=== PATIENT | female | born 1940 | race Caucasian/White ===

== ENCOUNTER → 2017-04-02 | Outpatient (CLI) | payer MEDICAID ==
[~2017-04-02] MED LIST: ALEN70TA30 PO; ALPR0.254 PO; CALC1TAB79 PO; GABA300C16 PO; NIFE30TA60 PO; OMEP20CA16 PO
--- NOTE | 2017-04-03 18:30 | RADRPT ---
Echocardiogram Report Patient Name: KIMMY BARILLAS Gender: Female Date: 1940 Study Date: 02-Apr-2017 Keyboard Instrument Tuner: Pauline Camara RDCS Location: EKG Ref. Physician: JOE PEREIRA Quality: Good Procedures: Transthoracic echocardiogram with complete 2D, M-Mode, and doppler examination. Indications: Breast Cancer. 2D/M Mode Doppler Measurement Value Normal Ranges Measurement Value Normal Ranges LVIDd 2D 4.1 3.5 - 5.6 cm AV Peak [place] 1.4 m/sec LVIDs 2D 2.1 2.1 - 4.1 cm AV Peak PG 8.4 mmHg LVPWd 2D 0.8 0.6 - 1.1 cm LVOT Peak [place] 1.0 m/sec IVSd 2D 0.9 0.6 - 1.1 cm LVOT Peak PG 3.7 mmHg AoR Diam 2D 2.6 2.0 - 3.7 cm MV E Peak [place] 0.8 m/sec EDV 2D 75.5 cm3 MV A Peak [place] 0.7 m/sec ESV 2D 8.7 cm3 MV E/A 1.0 LA Dimen 2D 3.3 2.3 - 4.0 cm MV Decel Time 164 msec MV Decel Riley 5 MV E/A 1.0 TR Peak [place] 3.0 m/sec TR Peak PG 36.6 mmHg RVSP 40.0 mmHg Findings Left Ventricle: Normal left ventricular systolic function. Normal left ventricular cavity size. Normal left ventricular wall thickness. Ejection fraction is visually estimated at 5560 %. Tissue Doppler/Mitral Doppler indices are consistent with impaired relaxation (Stage I diastolic dysfunction). Right Ventricle: Normal right ventricular size. Normal right ventricular systolic function. Left Atrium: The left atrium is normal in size. Right Atrium: The right atrium is normal in size. Mitral Valve: Mitral valve leaflets appear mildly thickened. Mild mitral annular calcification. Trace mitral regurgitation. Aortic Valve: Normal appearance of the aortic valve. No significant aortic stenosis or insufficiency. Tricuspid Valve: Normal appearance of the tricuspid valve. Estimated peak PA systolic pressure 40 mmHg. There is mild tricuspid regurgitation. Pulmonic Valve: Normal pulmonic valve appearance. Pericardium: Normal pericardium with no significant pericardial effusion. Aorta: Normal aortic root. IVC: Normal size and normal respiratory collapse consistent with normal right atrial pressure. Conclusions 1.Normal left ventricular systolic function. Normal left ventricular cavity size. Normal left ventricular wall thickness. Ejection fraction is visually estimated at 55-60 %. Tissue Doppler/Mitral Doppler indices are consistent with impaired relaxation (Stage I diastolic dysfunction). 2.Mitral valve leaflets appear mildly thickened. Mild mitral annular calcification. Trace mitral regurgitation. 3.Normal appearance of the tricuspid valve. Estimated peak PA systolic pressure 40 mmHg. There is mild tricuspid regurgitation. Electronically Signed By: Rolly Rice 03-Apr-2017 18:29:30 -0800 Patient Name: KIMYM BARILLAS Study Date: 02-Apr-2017 [id number]
== END | disposition home or self-care (01) ==
LOC: EKG 08:39
PROVIDERS: ATTEND Internal Medicine Hematology & Oncology
DX: C50.919 Malignant neoplasm of unspecified site of unspecified female breast (principal)
CPT/HCPCS: 93306

== ENCOUNTER 2017-08-01 10:31 | Inpatient (IN) | END 2017-08-03 14:55 | disposition home or self-care (01) | DRG 583 ==

== ENCOUNTER 2017-08-04 09:52 | Emergency (ER) | END 2017-08-04 12:28 | disposition home or self-care (01) ==

== ENCOUNTER → 2017-12-22 15:05 | Inpatient (IN) | END | disposition home or self-care (01) | DRG 871 ==

== ENCOUNTER 2018-03-21 08:15 | Day surgery (SDC) | END 2018-03-21 15:28 | disposition home or self-care (01) ==

== ENCOUNTER 2018-08-14 12:41 | Emergency (ER) | payer OTHER ==
[~2018-08-14] VITALS: Ht 152.4 cm; Wt 59.3 kg
[~2018-08-14 12:41] MED LIST changes: -ALEN70TA30 PO; -ALPR0.254 PO; +CYCL1DRO BOTH EYES; +FAMO40TA5 PO; -NIFE30TA60 PO; +NIMO30CA5 PO; -OMEP20CA16 PO; +PANT40TA3 PO; +TRAZ-111 PO; +[UNRECOGNIZED DRUG - CODE] PO
[2018-08-14 13:06] VITALS: Ht 152.4 cm; Wt 59.3 kg
[2018-08-14] MEDS ORDERED: morphine 4 MG/ML VIAL IV STA (14:50)
[2018-08-14] MEDS ORDERED: ONDANSETRON 4 MG INJ IV STA (14:50)
[2018-08-14] MEDS ORDERED: CALC-267 PO (15:57)
[2018-08-14] MEDS ORDERED: LETR2.5T PO (15:58)
[2018-08-14] MEDS ORDERED: GABA300C16 PO (15:58)
[2018-08-14] MEDS ORDERED: TRAZ-149 PO (15:58)
[2018-08-14] MEDS ORDERED: FAMO40TA5 PO (15:59)
[2018-08-14] MEDS ORDERED: PANT40TA4 PO (15:59)
[2018-08-14] MEDS ORDERED: NITROFURANTOIN (SR) 100 MG CAP PO ONE (16:00)
[2018-08-14] MEDS ORDERED: NITR-58 PO (17:28)
--- NOTE | 2018-08-14 17:30 | ERD ---
ER Documentation Chief Complaint Chief Complaint pain on left side of abd. that radiates to back for 2 wks(hx of gallstones) HPI Patient is a 78-year-old female with breast cancer who presents with left-sided abdominal pain. Symptoms started on Saturday. She said that they have been strong and constant. Upon review of old medical records the patient has multiple visits to the ER for various complaints. She says that her primary doctor is Dr. Angeles. ROS All systems reviewed and are negative except as per history of present illness. Medications Home Meds Active Scripts Nitrofurantoin Monohyd Macrocr* (Macrobid*) 100 Mg Capsr, 100 MG PO BID for 7 Days, CAP Prov:PHILLIP RAMIREZ MD 08/14/18 Reported Medications Pantoprazole* (Pantoprazole*) 40 Mg Tablet.dr, 40 MG PO AC BREAKFAST, TAB 08/14/18 Famotidine* (Famotidine*) 40 Mg Tablet, 40 MG PO HS, #30 TAB 08/14/18 Trazodone Hcl* (Desyrel*) 50 Mg Tab, 50 MG PO QHS, #30 TAB 08/14/18 Letrozole* (Letrozole*) 2.5 Mg Tablet, 2.5 MG PO DAILY, TAB 08/14/18 Gabapentin* (Gabapentin*) 300 Mg Capsule, 300 MG PO TID, #90 CAP 08/14/18 Calc/D3/Mag/Zn/Cathode Washer/Ananda/[place] (Calcium 600 + Vit D) 1 Each Tablet, 1 TAB PO DA SEVERIANO, TAB 08/14/18 Discontinued Reported Medications Acetaminophen (MAPAP) 32 Mg/1 Ml Disp.syrin, 32 MG PO 03/21/18 Nimodipine (NIMODIPINE) 30 Mg Capsule, 30 MG PO DAILY, CAP 03/21/18 Trazodone Hcl* (Trazodone Hcl*) 50 Mg Tablet, 50 MG PO QHS, #30 TAB 03/21/18 Famotidine* (Famotidine*) 40 Mg Tablet, 40 MG PO HS, #30 TAB 03/21/18 Cyclosporine (RESTASIS) 1 Each [place], 1 DROP BOTH EYES Q12, #1 BOX 12/05/17 Gabapentin* (Gabapentin*) 300 Mg Capsule, 300 MG PO TID, #90 CAP 02/13/17 Calcium Carbonate/Vitamin D3 ([place] 500+D Tablet) 1 Each Tablet, 1 EACH PO DAILY, TAB 02/13/17 Discontinued Scripts Pantoprazole* (Protonix*) 40 Mg Tablet.dr, 40 MG PO DAILY for 30 Days, TAB Prov:MARILOU DAHL 12/20/17 Allergies Allergies: Coded Allergies: Penicillins (Unverified Allergy, Unknown, RASH HIVES, 08/14/18) Sulfa (Sulfonamide Antibiotics) (Unverified Allergy, Unknown, RASH HIVES, 08/14/18) acetaminophen (Unverified Allergy, Unknown, 08/14/18) cortisone (Verified Allergy, Unknown, 08/14/18) ibuprofen (Unverified Allergy, Unknown, 08/14/18) Uncoded Allergies: CONTRAST (Allergy, Unknown, 02/13/17) PAPER TAPE (Allergy, Unknown, 02/13/17) PMhx/Soc History of Surgery: Yes (LEFT MASTECTOMY) Anesthesia Reaction: No Hx Neurological Disorder: No Hx Respiratory Disorders: No Hx Cardiac Disorders: No Hx Psychiatric Problems: No Hx Miscellaneous Medical Probl: Yes (FIBROSITIS/ FIBROMYALGIA) Hx Alcohol Use: No Hx Substance Use: No Hx Tobacco Use: No Smoking Status: Never smoker FmHx Family History: No diabetes Physical Exam Vitals Vital Signs Date Temp Pulse Resp B/P (MAP) Pulse Ox O2 O2 Flow FiO2 Time Delivery Rate 08/14/18 97.8 60 20 138/70 96 Room Air 15:41 (92) 08/14/18 97.8 71 20 163/72 96 13:06 (102) Physical Exam Const: No acute distress Head: Atraumatic Eyes: Normal Conjunctiva ENT: Normal External Ears, Nose and Mouth. Neck: Full range of motion. No meningismus. Resp: Clear to auscultation bilaterally Cardio: Regular rate and rhythm, no murmurs Abd: Soft, left upper quadrant tenderness to palpation without rebound or guarding Skin: No petechiae or rashes Back: No midline or flank tenderness Ext: No cyanosis, or edema Neur: Awake and alert Psych: Normal Mood and Affect Result Diagram: 08/14/18 1511 08/14/18 1511 Results 24 hrs Laboratory Tests Test 08/14/18 15:11 08/14/18 15:36 White Blood Count 7.6 10^3/ul Red Blood Count 3.92 10^6/ul Hemoglobin 12.2 g/dl Hematocrit 37.1 % Mean Corpuscular Volume 94.6 fl Mean Corpuscular Hemoglobin 31.1 pg Mean Corpuscular Hemoglobin Concent 32.9 g/dl Red Cell Distribution Width 12.5 % Platelet Count 222 10^3/UL Mean Platelet Volume 9.2 fl Immature Granulocytes % 0.300 % Neutrophils % 54.0 % Lymphocytes % 36.8 % Monocytes % 6.6 % Eosinophils % 1.6 % Basophils % 0.7 % Nucleated Red Blood Cells % 0.0 /100WBC Immature Granulocytes # 0.020 10^3/ul Neutrophils # 4.1 10^3/ul Lymphocytes # 2.8 10^3/ul Monocytes # 0.5 10^3/ul Eosinophils # 0.1 10^3/ul Basophils # 0.1 10^3/ul Nucleated Red Blood Cells # 0.0 10^3/ul Prothrombin Time 13.2 Sec Prothrombin Time Ratio 1.0 INR International Normalized Ratio 0.99 Activated Partial Thromboplast Time 32.6 Sec Sodium Level 139 mmol/L Potassium Level 4.1 mmol/L Chloride Level 105 mmol/L Carbon Dioxide Level 23 mmol/L Anion Gap 11 Blood Urea Nitrogen 15 mg/dl Creatinine 0.65 mg/dl Est Glomerular Filtrat Rate mL/min mL/min Glucose Level 95 mg/dl Calcium Level 9.4 mg/dl Total Bilirubin 0.9 mg/dl Direct Bilirubin 0.00 mg/dl Indirect Bilirubin 0.9 mg/dl Aspartate Amino Transf (AST/SGOT) 27 IU/L Alanine Aminotransferase (ALT/SGPT) 18 IU/L Alkaline Phosphatase 94 IU/L Troponin I < 0.012 ng/ml Total Protein 8.9 g/dl Albumin 4.7 g/dl Globulin 4.20 g/dl Albumin/Globulin Ratio 1.11 Lipase 194 U/L Urine Color YELLOW Urine Clarity SLIGHTLY CLOUDY Urine pH 5.0 Urine Specific [place] 1.010 Urine Ketones NEGATIVE mg/dL Urine Nitrite NEGATIVE mg/dL Urine Bilirubin NEGATIVE mg/dL Urine Urobilinogen NEGATIVE mg/dL Urine Leukocyte Esterase 1+ [place]/ul Urine Microscopic RBC 0 /HPF Urine Microscopic WBC 6 /HPF Urine Bacteria FEW /HPF Urine Hemoglobin NEGATIVE mg/dL Urine Glucose NEGATIVE mg/dL Urine Total Protein NEGATIVE mg/dl Current Medications Medications Dose Sig/Michelle Start Time Status Last (Trade) Ordered Route PRN Stop Time Admin Dose Reason Admin Morphine 4 mg ONCE STAT 08/14/18 DC 08/14/18 Sulfate IV 14:50 08/14/18 15:34 (morphine) 14:51 Ondansetron 4 mg ONCE STAT 08/14/18 DC 08/14/18 HCl (Zofran IV 14:50 08/14/18 15:30 Inj) 14:51 100 mg ONCE ONCE 08/14/18 DC 08/14/18 Nitrofurantoi PO 16:00 08/14/18 17:03 n 16:01 Macrocrystals (Macrobid) Procedures/MDM EKG read by me: Rate/Rhythm: Sinus bradycardia rate of 56 Intervals: Normal Impression: Bradycardia without ischemia CT abdomen pelvis read by radiology. Patient is a 78-year-old female who presents with abdominal pain. The patient was found to have mild UTI was given Macrobid. Other laboratory studies are basically normal and the patient has a CT scan which shows no surgical process. At this point I doubt appendicitis, cholecystitis, pancreatitis, or bowel obstruction. I believe outpatient management is appropriate but the patient will need close follow-up with her primary doctor within 24-48 hours. She was provided copies of laboratory studies and CT scan report prior to discharge. Departure Diagnosis: Primary Impression: Cystitis Additional Impression: Abdominal pain Abdominal location: generalized Qualified Codes: R10.84 - Generalized ab dominal pain Condition: Fair Patient Instructions: Abdominal Pain, Cystitis Referrals: Dr. Angeles your doctor Additional Instructions: Llame al doctor MAANA y bandar doc CM PARA DENTRO DE 1-2 WHITMORE.Dgale a la s ecretaria que nosotros le instruimos hacer esta cm.Avise o llame si gustafson condicin se empeora antes de la cm. Regresa aqui si peor o no mejor. PHILLIP RAMIREZ MD Aug 14, 2018 17:30
[2018-08-14 18:23] VITALS: BP 143/73; PULSE 87; RESP 20
== END 2018-08-14 18:36 | disposition home or self-care (01) ==
LOC: E/R 12:41
DX: N30.90 Cystitis, unspecified without hematuria (principal); Z85.3 Personal history of malignant neoplasm of breast
CPT/HCPCS: 36415; 74176; 80053; 81001; 83690; 84484; 85025; 85610; 85730; 96374; 96375; J2270; J2405; Z7502; Z7610

== ENCOUNTER 2018-09-05 07:45 | Day surgery (SDC) | payer OTHER ==
[~2018-09-05] VITALS: Ht 154.9 cm; Wt 60.0 kg
[2018-09-05] VITALS (11 sets, daily range): BP systolic 123–146; BP diastolic 59–71; PULSE 48–68; RESP 16–19; Ht 154.9 cm; Wt 60.0 kg
[~2018-09-05 07:45] MED LIST changes: +CALC-267 PO; -CALC1TAB79 PO; -CYCL1DRO BOTH EYES; +LETR2.5T PO; -NIMO30CA5 PO; +NITR-58 PO; -PANT40TA3 PO; +PANT40TA4 PO; -TRAZ-111 PO; +TRAZ-149 PO; -[UNRECOGNIZED DRUG - CODE] PO
[2018-09-05] MEDS ORDERED: TRAM50TA2 PO (08:54)
[2018-09-05] MEDS: INDOMETHACIN 50 MG SUPP PR ONE ×2 (09:24→09:30)
[2018-09-05] MEDS ORDERED: DIPHENHYDRAMINE 50 MG INJ IV ONE (09:24)
[2018-09-05] MEDS ORDERED: DIPHENHYDRAMINE 50 MG INJ ONE (09:28)
[2018-09-05] MEDS ORDERED: IOHEXOL 300MG/ML 30 ML BTL ONE (09:28)
--- NOTE | 2018-09-05 09:36 | PREAC ---
Date/Time of Note Date/Time of Note DATE: 09/05/18 TIME: 09:34 Anesthesia Eval and Record Evaluation Time Pre-Procedure Interview DATE: 09/05/18 TIME: 09:34 Age 78 Sex female NPO: 8 hrs Preoperative diagnosis s/p Stent placement, abdominal Pain Planned procedure ERCP, stent Removal Past Medical History Past Medical History: Includes Musculoskeletal: Other (Fibriomyalgia) GI: GERD Surgery & Anesthesia Issues No known issue Meds Anticoagulation: No Beta Wang within 24 hr: No Reason Beta Wang not given: Pt. not on B-Wang Reported Medications Tramadol HCl (Tramadol HCl) 50 Mg Tablet, 50 MG PO QHS PRN for PAIN, #120 TAB 09/05/18 Pantoprazole* (Pantoprazole*) 40 Mg Tablet.dr, 40 MG PO AC BREAKFAST, TAB 08/14/18 Famotidine* (Famotidine*) 40 Mg Tablet, 40 MG PO HS, #30 TAB 08/14/18 Trazodone Hcl* (Desyrel*) 50 Mg Tab, 50 MG PO QHS, #30 TAB 08/14/18 Letrozole* (Letrozole*) 2.5 Mg Tablet, 2.5 MG PO DAILY, TAB 08/14/18 Gabapentin* (Gabapentin*) 300 Mg Capsule, 300 MG PO TID, #90 CAP 08/14/18 Discontinued Reported Medications Calc/D3/Mag/Zn/Building Trades Teacher/Ananda/[place] (Calcium 600 + Vit D) 1 Each Tablet, 1 TAB PO DAILY, TAB 08/14/18 Discontinued Scripts Nitrofurantoin Monohyd Macrocr* (Macrobid*) 100 Mg Capsr, 100 MG PO BID for 7 Days, CAP Prov:PHILLIP RAMIREZ MD 08/14/18 Meds reviewed: Yes Allergies Coded Allergies: Penicillins (Unverified Allergy, Unknown, RASH HIVES, 09/05/18) Sulfa (Sulfonamide Antibiotics) (Unverified Allergy, Unknown, RASH HIVES, 09/05/18) adhesive tape (Verified Allergy, Unknown, 09/05/18) codeine (Verified Allergy, Unknown, 09/05/18) cortisone (Verified Allergy, Unknown, 09/05/18) Uncoded Allergies: CONTRAST (Allergy, Unknown, 02/13/17) Allergies Reviewed: Yes Labs/Studies Labs Reviewed: Reviewed by anesthesiologist test: N/A Studies: ECG (n/a), CXR (n/a) Pre-procedure Exam Last vitals Vital Signs Date Temp Pulse Resp B/P (MAP) Pulse Ox O2 O2 Flow FiO2 Time Delivery Rate 09/05/18 98.0 64 16 140/65 97 09:03 (90) Airway: Adequate mouth opening, Adequate thyromental dist Mallampati: Mallampati II Teeth: Normal Lung: Normal Heart: Normal ASA Physical Status ASA physical status: 2 Emergency: None Planned Anesthetic General/MAC: ETT Planned Pain Management Parenteral pain med Pre-operative Attestations Prior to commencing anesthesia and surgery, the patient was re-evaluated, there was verification of: *The patient's identity *The results of appropriate recent lab work and preoperative vital signs *The above evaluation not changing prior to induction *Anesthetic plan, risk benefits, alternative and complications discussed with patient/family; questions answered; patient/family understands, accepts and wi shes to proceed. SHANNAN CALVO MD Sep 05, 2018 09:36
[2018-09-05] MEDS ORDERED: FENTAnyl 50 MCG/ML VIAL ONE (09:41)
[2018-09-05] MEDS ORDERED: PROPOFOL 20 ML ONE (09:41)
[2018-09-05] MEDS ORDERED: ROCURONIUM 50 MG INJ ONE (09:41)
[2018-09-05] MEDS ORDERED: ONDANSETRON 4 MG INJ ONE (09:44)
[2018-09-05] MEDS ORDERED: DEXAMETHASONE 4 MG/ML 5 ML INJ ONE (09:44)
[2018-09-05] MEDS ORDERED: MEPERIDINE 25 MG INJ IV PRN (10:00)
[2018-09-05] MEDS ORDERED: FENTAnyl 50 MCG/ML VIAL IV PRN ×2 (10:00)
[2018-09-05] MEDS ORDERED: HYDROmorphONE 1 MG/5 ML IV SYRINGE IV PRN ×2 (10:00)
[2018-09-05] MEDS ORDERED: DIPHENHYDRAMINE 50 MG INJ IV PRN (10:00)
[2018-09-05] MEDS ORDERED: EPHEDrine SULFATE 50 MG/5 ML SYG IV PRN (10:00)
[2018-09-05] MEDS ORDERED: LABETALOL HCL 20MG INJ IV PRN (10:00)
[2018-09-05] MEDS ORDERED: ONDANSETRON 4 MG INJ IV PRN (10:00)
[2018-09-05] MEDS ORDERED: NEOSTIGMINE 3 MG/3 ML SYRINGE ONE (10:25)
[2018-09-05] MEDS ORDERED: GLYCOPYRROLATE 0.4 MG INJ ONE (10:25)
--- NOTE | 2018-09-05 10:43 | OPR ---
Date/Time of Note Date/Time of Note DATE: 09/05/18 TIME: 10:39 Operative Report Preoperative Diagnosis cbd stent and stones Postoperative Diagnosis cbd stent and cbd stones Operation/Procedure Performed ercp cbd stent removed Surgeon see signature line Glass Blower none Anesthesia Type: general Anesthesiologist: SHANNAN CALVO MD Estimated Blood Loss: none Transfusion none Specimen ampullary mass bx brushing of distal cbd Grafts/Implants none Tubes/Drains none Complications none Pt Condition Post Procedure: stable Disposition: PACU Indications cbd stent in place Procedure Description ercp cbd stent removel brushing of distal cbd and bx of ampullary mass DANNIE URIOSTEGUI MD Sep 05, 2018 10:43
--- NOTE | 2018-09-05 10:43 | PAC ---
Date/Time of Note Date/Time of Note DATE: 09/05/18 TIME: 10:42 Post-Anesthesia Notes Post-Anesthesia Note Last documented vital signs Vital Signs Date Temp Pulse Resp B/P (MAP) Pulse Ox O2 O2 Flow FiO2 Time Delivery Rate 09/05/18 98.0 64 16 140/65 99 face mask 10:40 (90) Activity: WNL Respiratory function: WNL Cardiovascular function: WNL Mental status: Baseline Pain reasonably controlled: Yes Hydration appropriate: Yes Nausea/Vomiting absent: Yes SHANNAN CALVO MD Sep 05, 2018 10:43
--- NOTE | 2018-09-05 18:47 | GILP ---
DATE OF PROCEDURE: PROCEDURE: ERCP. PREOPERATIVE DIAGNOSIS: The patient has a common bile duct stent placed number of years ago. Proced ure at this time was performed to remove the common bile duct stent and also remove the common bile d uct stones if any found. POSTOPERATIVE DIAGNOSES: Common bile duct stent was removed. Multiple stones were removed from the common bile duct and also ampullary mass was noted. Biopsy of the ampulla was done and also brushing s of the distal bile duct was done. DESCRIPTION OF PROCEDURE: After informed written consent was obtained, the patient was intubated by anesthesiologist, Dr. Hollis. When the patient became somnolent, the Olympus video side-viewing duo denoscope was inserted into the oropharynx, then into the esophagus, subsequently into the stomach an d then into the duodenum. The ampulla was showing evidence of mass-like structure. CBD stent was in place. By using the snare, the stent was grabbed and stent was removed. Subsequently, the balloon was inserted into the common bile duct which is stone extraction balloon. Contrast was injected. Si gnificantly dilated common bile duct was noted. Both intra and extrahepatic ducts also were found to be dilated. No gallbladder seen. Multiple filling defects were noted and by using the balloon swee p technique, multiple stones and sludge was removed from the common bile duct. There could be small stricture at the distal CBD adjoining the ampulla. Brushings were performed of the distal bile duct. Subsequently, multiple biopsies of the ampulla were done to rule out malignancy. Initially, pancre atic duct also was cannulated. Pancreatic duct appeared normal compared to the bile duct. At this t johnny, scope was withdrawn after taking several pictures and the procedure was terminated. PLAN: I recommend wait for the pathology report. Dictated By: DANNIE HIGH/GUILLE Conf#: [id number] DID#: [id number]
== END 2018-09-05 12:26 | disposition home or self-care (01) ==
LOC: SDS 07:45 → GIL 07:45
PROVIDERS: ATTEND Internal Medicine Gastroenterology
DX: K80.50 Calculus of bile duct without cholangitis or cholecystitis without obstruction (principal); Z45.82 Encounter for adjustment or removal of myringotomy device (stent) (tube)
CPT/HCPCS: 43264; 43275; 74330; 80053; 86301; 88104; 88305; J1100; J1200; J2405; J2710; J3010; Q9967; Z7512; Z7610

== ENCOUNTER 2018-12-10 10:06 | Day surgery (SDC) | payer OTHER ==
[2018-12-10] VITALS (17 sets, daily range): BP systolic 137–176; BP diastolic 66–81; PULSE 54–74; RESP 11–28; Ht 157.5 cm; Wt 59.0 kg
[~2018-12-10] VITALS: Ht 157.5 cm; Wt 59.0 kg
[~2018-12-10 10:06] MED LIST changes: +ACET500T98 ORAL; +AZEL137S9 NASAL; +CALC-143 PO; -CALC-267 PO; +CYAN1TAB20 PO; +FLUT16SP17 NASAL; +HYDR28.39 TOP; -NITR-58 PO; +TRAM50TA2 PO
[2018-12-10] MEDS ORDERED: LACTATED RINGER'S 1,000 ML IV SCH (12:30)
--- NOTE | 2018-12-10 12:47 | PREAC ---
Date/Time of Note Date/Time of Note DATE: 12/10/18 TIME: 12:43 Anesthesia Eval and Record Evaluation Time Pre-Procedure Interview DATE: 12/10/18 TIME: 12:43 Age 78 Sex female NPO: 8 hrs Preoperative diagnosis abdominal pain Planned procedure ERCP Past Medical History Past Medical History: Includes (IBS, pancreatitis) GI: GERD Psych: Other (fibromyalgia) Surgery & Anesthesia Issues No known issue Meds Anticoagulation: No Beta Awng within 24 hr: No Reason Beta Wang not given: Pt. not on B-Wang Reported Medications Fluticasone Propionate* (Fluticasone Propionate* Nasal) 50 Mcg/Seney - 16 Gm Seney.susp, 2 SPRAY NASAL DAILY 12/10/18 Azelastine Hcl* (Azelastine Hcl*) 137 Mcg/0.137 Ml Seney.pump, 2 SPRAY NASAL BID PRN for RHINORRHEA 12/10/18 Letrozole* (Letrozole*) 2.5 Mg Tablet, 2.5 MG PO DAILY, TAB 12/10/18 Hydrocortisone (PROCTOSOL-HC) 28.35 Gm Cream..g., TOP BID 12/10/18 Acetaminophen (Acetaminophen) 500 Mg Tablet, 1 TAB ORAL BID 12/10/18 Cyanocobalamin/FA/Pyridoxine (B Complex-Folic Acid Tablet) 1 Each Tablet, 1 EACH PO DAILY, TAB 12/10/18 Calcium Citrate/Vitamin D (Citracal-Vitamin D 200 MG-250) 1 Each Tablet, 1 TAB PO DAILY, TAB 12/10/18 Tramadol HCl (Tramadol HCl) 50 Mg Tablet, 50 MG PO QHS PRN for PAIN, #120 TAB 09/05/18 Pantoprazole* (Pantoprazole*) 40 Mg Tablet.dr, 40 MG PO AC BREAKFAST, TAB 08/14/18 Famotidine* (Famotidine*) 40 Mg Tablet, 40 MG PO HS, #30 TAB 08/14/18 Trazodone Hcl* (Desyrel*) 50 Mg Tab, 50 MG PO QHS, #30 TAB 08/14/18 Gabapentin* (Gabapentin*) 300 Mg Capsule, 300 MG PO TID, #90 CAP 08/14/18 Discontinued Reported Medications Letrozole* (Letrozole*) 2.5 Mg Tablet, 2.5 MG PO DAILY, TAB 08/14/18 Current Medications Lactated Ringer's 1,000 ml @ 25 mls/hr Q24H IV ; Start 12/10/18 at 12:30 Meds reviewed: Yes Allergies Coded Allergies: Penicillins (Unverified Allergy, Unknown, RASH HIVES, 09/05/18) Sulfa (Sulfonamide Antibiotics) (Unverified Allergy, Unknown, RASH HIVES, 09/05/18) adhesive tape (Verified Allergy, Unknown, 09/05/18) codeine (Verified Allergy, Unknown, 09/05/18) cortisone (Verified Allergy, Unknown, 09/05/18) diclofenac (Verified Allergy, Unknown, 12/10/18) ibuprofen (Verified Allergy, Unknown, 12/10/18) Uncoded Allergies: CONTRAST (Allergy, Unknown, 02/13/17) PARACETAMOL (Allergy, Unknown, 12/10/18) STOMACH UPSET,OK TO TAKE THE GENERIC ACETAMINOPHEN PER PATIENT Allergies Reviewed: Yes Labs/Studies Labs Reviewed: Reviewed by anesthesiologist Result Diagram: 12/10/18 1150 12/10/18 1150 Laboratory Tests 12/10/18 11:50 test: N/A Studies: ECG (nsr, LAD) Pre-procedure Exam Last vitals Vital Signs Date Temp Pulse Resp B/P (MAP) Pulse Ox O2 O2 Flow FiO2 Time Delivery Rate 12/10/18 98.5 74 16 137/66 95 Room Air 11:57 (89) Airway: Adequate mouth opening, Adequate thyromental dist Mallampati: Mallampati II Teeth: Normal Lung: Normal Heart: Normal ASA Physical Status ASA physical status: 2 Emergency: None Planned Anesthetic General/MAC: ETT Pre-operative Attestations Prior to commencing anesthesia and surgery, the patient was re-evaluated, there was verification of: *The patient's identity *The results of appropriate recent lab work and preoperative vital signs *The above evaluation not changing prior to induction *Anesthetic plan, risk benefits, alternative and complications discussed with patient/family; questions answered; patient/family understands, accepts and wishes to proceed. [employer]ite Machine Bluer used ADRIAN LEE Dec 10, 2018 12:47
[2018-12-10] MEDS ORDERED: FAMOTIDINE 20 MG INJ ONE (12:57)
[2018-12-10] MEDS ORDERED: FENTAnyl 50 MCG/ML VIAL ONE (12:57)
[2018-12-10] MEDS ORDERED: METOPROLOL 5 MG INJ ONE (12:57)
[2018-12-10] MEDS ORDERED: LIDOCAINE 2% (SDV) 5 ML INJ ONE (12:57)
[2018-12-10] MEDS ORDERED: DESFLURANE 15 MIN ONE (12:57)
[2018-12-10] MEDS ORDERED: PROPOFOL 40 ML ONE (12:58)
[2018-12-10] MEDS ORDERED: ROCURONIUM 50 MG INJ ONE (12:58)
[2018-12-10] MEDS ORDERED: PROVENTIL HFA 6.7GM INHALER ONE (12:58)
[2018-12-10] MEDS ORDERED: ONDANSETRON 4 MG INJ ONE (12:58)
[2018-12-10] MEDS ORDERED: DIPHENHYDRAMINE 50 MG INJ ONE (12:59)
[2018-12-10] MEDS ORDERED: morphine 2 MG INJ IV PRN ×2 (13:00)
[2018-12-10] MEDS ORDERED: ALBUTEROL 0.083% (NEB) 2.5 MG/3 ML AMP HHN PRN (13:00)
[2018-12-10] MEDS ORDERED: LABETALOL HCL 20MG INJ IV PRN (13:00)
[2018-12-10] MEDS ORDERED: hydrALAzine 20 MG INJ IV PRN ×2 (13:00→14:30)
[2018-12-10] MEDS ORDERED: HYDROmorphONE 1 MG/5 ML IV SYRINGE IV PRN ×3 (13:00)
[2018-12-10] MEDS ORDERED: MEPERIDINE 25 MG INJ IV PRN (13:00)
[2018-12-10] MEDS ORDERED: DIPHENHYDRAMINE 50 MG INJ IV PRN (13:00)
[2018-12-10] MEDS ORDERED: EPHEDrine 25 MG/5 ML SYG IV PRN (13:00)
[2018-12-10] MEDS ORDERED: FENTAnyl 50 MCG/ML VIAL IV PRN ×2 (13:00)
[2018-12-10] MEDS ORDERED: ONDANSETRON 4 MG INJ IV PRN (13:00)
[2018-12-10] MEDS ORDERED: INDOMETHACIN 50 MG SUPP PR ONE (13:30)
[2018-12-10] MEDS ORDERED: INDOMETHACIN 50 MG PO ONE (13:30)
[2018-12-10] MEDS ORDERED: IOHEXOL 300MG/ML 30 ML BTL ONE (13:41)
[2018-12-10] MEDS ORDERED: SUGAMMADEX SODIUM 200 MG/2 ML VIAL IV ONE (13:41)
--- NOTE | 2018-12-10 13:54 | OPR ---
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
--- NOTE | 2018-12-10 14:12 | PAC ---
Date/Time of Note Date/Time of Note DATE: 12/10/18 TIME: 14:09 Post-Anesthesia Notes Post-Anesthesia Note Last documented vital signs Vital Signs Date Temp Pulse Resp B/P (MAP) Pulse Ox O2 O2 Flow FiO2 Time Delivery Rate 12/10/18 98.5 98 74 73 16 16 137/66 95 99 Room 11:57 140 (89) 176/ Air face 4 77 mask 6L Activity: WNL Respiratory function: WNL Cardiovascular function: WNL Mental status: Baseline Pain reasonably controlled: Yes Hydration appropriate: Yes Nausea/Vomiting absent: Yes ADRIAN LEE Dec 10, 2018 14:12
--- NOTE | 2018-12-11 10:53 | GILP ---
DATE OF PROCEDURE: 12/10/2018 PROCEDURE: ERCP. PREOPERATIVE DIAGNOSIS: The patient presenting with history of choledocholithiasis in the past. The y were removed and stent was placed. 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 POSTOPERATIVE DIAGNOSES: 1. Nodularity and polypoid appearance of the ampulla was noted. Biopsies were done. 2. Distal common bile duct showed evidence of dilatation and pancreatic duct appeared normal. I elected not to put in a stent because there is good drainage of the bile. After the informed written consent was obtained, the patient was intubated by nurse absence management consultant, Christiana Corado. When the patient was in prone position, Olympus video side-viewing duodenoscope was ins erted into the oropharynx, then into the esophagus, subsequently into the stomach and then into the d uodenum. The ampulla was located in normal location. There is nodularity and even a polypoid appear ance of the ampulla was noted, and because of this, I proceeded to do a cholangiogram. First, the pa ncreatic duct was cannulated, which appeared normal. Subsequently, common bile duct was cannulated, which showed dilatation at least up to 15 to 18 mm in diameter. There is no stricture in the distal bile duct which could be suggestive of malignancy. However, there is good drainage of the bile comin g through the sphincterotomy site. I elected not to do any stenting at this time. Multiple biopsies of the ampulla were done and the procedure was terminated. PLAN: Recommend wait for the pathology report. Dictated By: DANNIE HIGH/GUILLE Conf#: [id number] DID#: [id number]
== END 2018-12-10 16:17 | disposition home or self-care (01) ==
LOC: SDS 10:06
PROVIDERS: ATTEND Internal Medicine Gastroenterology
DX: K83.8 Other specified diseases of biliary tract (principal); Z88.0 Allergy status to penicillin; Z88.2 Allergy status to sulfonamides
CPT/HCPCS: 43261; 71045; 74330; 80053; 85025; 85610; 85730; 86301; 88307; 93005; J1200; J2405; J3010; Q9967; Z7512; Z7610